=== PATIENT | male | born 1995 | race African-American/Black ===

== ENCOUNTER 2017-07-07 22:39 | Emergency (ER) | payer SELFPAY ==
[~2017-07-07] VITALS: Ht 190.5 cm; Wt 94.5 kg
[2017-07-07 22:50] VITALS: BP 128/90; TEMP 99.1
[2017-07-07] MEDS ORDERED: TAMIFLU 75MG75 MG PO (23:20)
[2017-07-08 00:43] VITALS: PULSE 54
== END 2017-07-08 00:43 | disposition home or self-care (01) ==
LOC: COL.ER 22:39
DX: S01.01XA Laceration without foreign body of scalp, initial encounter (principal); Z23 Encounter for immunization; W22.8XXA Striking against or struck by other objects, initial encounter

== ENCOUNTER 2017-07-12 14:43 | Emergency (ER) | payer OTHER ==
[~2017-07-12 14:43] MED LIST: TAMIFLU 75MG75 MG PO
[2017-07-12 14:54] VITALS: BP 119/78; PULSE 76; TEMP 98.2
== END 2017-07-12 14:58 | disposition home or self-care (01) ==
LOC: COL.ER 14:43
DX: Z48.02 Encounter for removal of sutures (principal)